=== PATIENT | female | born 1975 | race Caucasian/White ===

== ENCOUNTER → 2021-05-19 09:16 | Outpatient (CLI) | payer OTHER, SELFPAY ==
[2021-05-19 16:44] LABS: SARS-CoV-2 RNA PCR Negative
== END ==
PROVIDERS: Visit Provider Surgery Plastic and Reconstructive Surgery
DX: Z01.812 Encounter for preprocedural laboratory examination (principal); Z20.822 Contact with and (suspected) exposure to COVID-19
CPT/HCPCS: C9803; U0003; U0005

== ENCOUNTER 2021-05-22 01:16 | Day surgery (SDC) | payer OTHER, SELFPAY ==
[2021-05-09 09:40] VITALS: BMI 23.8
[2021-05-22] VITALS (8 sets, daily range): BP systolic 108–138; BP diastolic 73–85; PULSE 61–86; RESP 12–20; TEMP 36.7–36.8; O2SAT 98–100
--- NOTE | 2021-05-22 07:59 | WPDANESEPPF ---
Anes - Initial Pre Proc Eval Procedure: Operation Date: 05/22/21 13:00 Proposed Procedures p Bilateral Breast Augmentation - Natanael Kwong MD Date/Time: 05/22/21 07:59 Surgeon: Natanael Kwong MD Pre Op Diagnosis: micromastia Patient Data Age: 45 Gender: F Height: 1.75 m Weight: 73 kg Allergies Allergy/AdvReac Type Severity Reaction Status Date / Time Sulfa (Sulfonamide Allergy Unknown Rash Verified 05/22/21 11:08 Antibiotics) Home Medications Medication Instructions Recorded Confirmed Type multivitamin 1 tablet PO DAILY 04/11/21 05/22/21 History carisoprodol 350 mg tablet 350 mg PO TID PRN #21 tablet 05/09/21 05/09/21 Rx docusate sodium 100 mg capsule 100 mg PO DAILY #14 cap 05/09/21 Rx ondansetron HCl 4 mg tablet 4 mg PO Q8H #21 tablet 05/09/21 Rx oxycodone-acetaminophen 5 mg-325 1 tablet PO Q6H PRN #15 tablet 05/09/21 05/09/21 Rx mg tablet Patient hx anesthesia problems: none Family hx anesthesia problems: none PMFSH Surgical History Surgical History History of History of cholecystectomy Family History Family History Father Carcinoma of colon Grandparent Breast cancer Brain cancer Social History Social History Smoking status: Unknown if ever smoked Alcohol intake: current Substance use: current Substance use type: marijuana Last use: 05/28/21 Living arrangements: with family Gender identity (if verbalized by the patient): Female Sexual Orientation (if Verbalized by the Patient): Straight or Heterosexual Spiritual care concerns: No Anes - Eval Final PreProcedure Day of Procedure 05/22/21 07:59 Patient weight: normal Heart: regular rate and rhythm Lungs: clear to auscultation and normal air movement Airway: Mallampati scale class II Neurological: alert and oriented Last oral intake: >/= 8 hours ASA classification: II Emergent: no Anesthetic plan: proceed Anesthesia type and monitoring: general LMA and standard monitoring Informed Consent: The patient's anesthetic plan and its attendant risks and benefits were discussed with the patient/family/POA. Questions were solicited and answers provided to the satisfaction of the patient/family/POA.
--- NOTE | 2021-05-22 11:28 | WPDHPUPDATE1 ---
History and Physical Update Update Date/Time: 05/22/21 11:28 History and Physical has been reviewed, including an updated exam of the patient. There are NO changes in the patient's condition. Today we had a lengthy discussion about her self-reported history of DVT. On questioning this did not sound like a DVT and she has now reached out to her primary care who states she did NOT have a DVT. We discussed all her options for DVT prophylaxis.. We also spent extensive time discussing symptoms of DVT, what monitor for and how to manage. Risks, benefits, and alternatives have been discussed and questions answered. Patient agrees to proceed with procedure.
[2021-05-22] MEDS: LACTATED RINGERS 1,000 ML 30 ML IV CONT ×2 (11:38→13:10)
--- NOTE | 2021-05-22 11:39 | W.PM.PROC2 ---
Procedure Note - Detailed Date of Procedure 05/22/21 Pre-op Diagnosis micromastia Post-op Diagnosis same Procedure Performed Bilateral augmentation mammaplasty Surgeon Natanael Kwong MD Anesthesia general Findings Bilateral [employer] Soft[employer] Implants 445cc Right - REF# [id number] SN [id number] Dual plane 3 Left - REF# [id number] SN [id number] Dual plane 2 Description of Procedure She is here today for bilateral breast augmentation. Previously and again today the risks, benefits, alternatives were discussed in extensive detail. I wanted her to be very realistic about the risks involved as well as expectations. We discussed aftercare and what to monitor for. Made sure answered all of her questions to her satisfaction today and consent was obtained. Marked in the preoperative holding area with their verification. The patient was taken to the operating room placed supine on the operating table. Anesthesia was provided by anesthesiology. A surgical time-out was taken. We cleansed the skin and 1% lidocaine and 0.25% Marcaine with epinephrine was used anesthetize as a field block. She was prepped and draped in a standard sterile fashion. Tegaderm nipple Curran were placed. A 15 blade used to make an incision along the inframammary fold. Dissection was continued at 45 degree angle until the chest wall as identified. I elevated in a dual plane fashion as outlined above. I incised the pectoralis major along its inferior border and completely released the inferior border leaving the medial border intact. I created a subpectoral pocket in the appropriate dimensions based on our preoperative planning for the implant. I then copiously irrigated with saline solution and verified a strict hemostasis. Next the use a triple antibiotic and Betadine containing solution to irrigate the pocket. I washed my gloves with the triple antibiotic and Betadine solution. We washed the implant immediately upon opening it with this solution and only opened it when we needed it. I used implant funnel and no-touch technique. The implant was introduced into the pocket using the funnel. Having verified positioning of the implant this was closed using 2-0 Vicryl followed by 3-0 Monocryl in a running subcuticular 4-0 Monocryl followed by tissue glue. Fluffs, Nash wrap, and surgical bra were placed. Patient was awoke and taken to PACU without difficulty. All instrument sponge counts were correct at the end of the case. Estimated Blood Loss 20 Drains No Packing No Pathology none sent Complications No immediate complications Condition stable Disposition PACU
[2021-05-22] MEDS: TRANEXAMIC ACID 1,000MG/ISO100 1,000 MG/100 ML BAG 200 MG IVPB (12:10)
[2021-05-22] MEDS: ceFAZolin 2 GM/D5W 50 ML 2 GM/50 ML BAG IVPB (12:20)
[2021-05-22] MEDS: LIDO 1%/EPINEPHRINE 1:100,000 50 ML VIAL 30 ML INFILTRATE (12:36)
[2021-05-22] MEDS: BUPIVACAINE HCL 0.25% PF 30 ML VIAL INFILTRATE (12:38)
[2021-05-22] MEDS: fentaNYL CITRATE INJ (*CRX) 100 MCG/2 ML VIAL 25 MCG IV PUSH ×2 (13:35→13:39)
[2021-05-22] MEDS: oxyCODONE HCL (*CRX) 5 MG TAB IR PO (14:19)
== END 2021-05-22 14:55 | disposition home or self-care (01) ==
PROVIDERS: Visit Provider Surgery Plastic and Reconstructive Surgery
PROC: (CPT 19325; principal; 2021-05-22 13:00)
DX: Z41.1 Encounter for cosmetic surgery (principal); N64.82 Hypoplasia of breast; F12.90 Cannabis use, unspecified, uncomplicated
CPT/HCPCS: 19325; A9270; J0690; J1580; J2250; J3010; J7120